=== PATIENT | male | born 1940 | race Caucasian/White ===

== ENCOUNTER 2018-01-09 11:41 | Observation (INO) | payer OTHER ==
[~2018-01-09] VITALS: Ht 167.6 cm; Wt 54.8 kg
[~2018-01-09 11:41] MED LIST: ASPIR 8181 M1 PO; METHOTREXATE2.5 MG; NEURONTIN400 MG PO; PLAQUENIL200 MG PO; PREDNISONE2.5 MG PO; SPIRIVA1 INHALATI IH; SYMBICORT60 INHALAT IH; VICODIN
[2018-01-09 12:19] LABS: BASOPHIL (%) 0.7 % (0-1); EOSINOPHIL (%) 1.7 % (0-5); EOSINOPHIL COUNT 0.1 K/uL (0-0.3); HEMATOCRIT 39.7 % (38.0-50.0); IMMATURE GRANULOCYTE (%) 0.5 % (0.0-0.7); LYMPHOCYTE (%) 9.7 % (15-42); LYMPHOCYTE COUNT 0.4 K/uL (1.0-2.8); MCH 30.4 PG (29.0-34.0); MCHC 32.7 G/DL (30.0-36.0); MONOCYTE (%) 6.6 % (3-12); MONOCYTE COUNT 0.3 K/uL (0-0.8); NEUTROPHIL (%) 80.8 % (45-76); NEUTROPHIL COUNT 3.3 K/uL (1.8-6.4); PLATELET COUNT 116 K/uL (156-360); RBC DIS.WIDTH-CV 13.6 % (11.8-14.6); RED BLOOD COUNT 4.27 M/uL (4.00-5.50); WHITE BLOOD COUNT 4.1 K/uL (4.1-10.2)
[2018-01-09 12:25] LABS: INTER. NORMALIZED RATIO 1.1
[2018-01-09 12:27] LABS: PTT 38.5 SEC (25-37)
[2018-01-09 12:28] LABS: CHLORIDE 105 mEq/L (99-109); POTASSIUM 4.1 mEq/L (3.7-5.4); SODIUM 140 mEq/L (136-147)
[2018-01-09 12:29] LABS: GLUCOSE 79 mg/dL (70-99)
[2018-01-09 12:33] LABS: CREATININE 0.9 mg/dL (0.6-1.3)
[2018-01-09 12:34] LABS: GFR ESTIMATE (CALCULATED) > 59 mL/min/ (58.99-99999); UREA NITROGEN (BUN) 18 mg/dL (9-23)
[2018-01-09 12:39] LABS: TROP-I INTERPRETATION NEGATIVE; TROPONIN-I < 0.01 ng/mL (0.0-0.30)
[2018-01-09 13:32] LABS: THYROTROPIN (TSH) 4.3 MIU/L (0.4-5.5)
[2018-01-09] MEDS ORDERED: PROAIR HFA8.5 GM IH (13:40)
[2018-01-09] MEDS ORDERED: REQUIP1 MG PO (13:40)
[2018-01-09] MEDS ORDERED: ADVAIR 250/501 DISK IH (13:40)
[2018-01-09] MEDS ORDERED: THEOPHYLLINE400 MG PO (13:40)
[2018-01-09] MEDS ORDERED: HYDROCODON-ACE1 EAC8 PO (13:40)
[2018-01-09 16:22] VITALS: BP 124/87
[2018-01-09 18:56] LABS: TROP-I INTERPRETATION NEGATIVE; TROPONIN-I 0.05 ng/mL (0.0-0.30)
[2018-01-09 19:35] VITALS: BP 118/55
[2018-01-10 00:17] VITALS: BP 85/53
[2018-01-10 01:11] LABS: TROP-I INTERPRETATION NEGATIVE; TROPONIN-I 0.04 ng/mL (0.0-0.30)
[2018-01-10 03:48] VITALS: BP 85/46
[2018-01-10 05:37] LABS: CHLORIDE 106 MEQ/L (99-109); CREATININE 1.1 MG/DL (0.6-1.3); GFR ESTIMATE (CALCULATED) > 59 mL/min/ (58.99-99999); GLUCOSE 82 mg/dL (70-99); POTASSIUM 4.1 MEQ/L (3.7-5.4); SODIUM 139 MEQ/L (136-147); UREA NITROGEN (BUN) 28 mg/dL (9-23)
[2018-01-10 08:30] VITALS: BP 113/46
[2018-01-10] MEDS ORDERED: ELIQUIS5 MG PO (08:49)
[2018-01-10 11:21] VITALS: BP 95/54
[2018-01-10] MEDS ORDERED: DILTIAZEM 24HR120 MG PO (11:46)
== END 2018-01-10 15:56 | disposition home or self-care (01) ==
LOC: EME 11:41 → EDOF 13:33 → ENRESERV 13:34 → 4SOUTH 15:51
PROVIDERS: Emergency Medicine; Student in an Organized Health Care Education/Training Program
DX: I48.0 Paroxysmal atrial fibrillation (principal); J44.9 Chronic obstructive pulmonary disease, unspecified; M33.20 Polymyositis, organ involvement unspecified; M35.00 Sjogren syndrome, unspecified; Z98.890 Other specified postprocedural states; Z87.891 Personal history of nicotine dependence; G62.9 Polyneuropathy, unspecified; Z91.041 Radiographic dye allergy status; Z79.82 Long term (current) use of aspirin; Z79.52 Long term (current) use of systemic steroids; Z79.01 Long term (current) use of anticoagulants
CPT/HCPCS: 71045; 80048; 84443; 84484; 85025; 85610; 85730; 93005; 94640; 94640 76; 94760; 94799; 99202; 99281; 99285; G0378